=== PATIENT | male | born 1980 | race African-American/Black ===

== ENCOUNTER 2017-09-19 04:05 | Inpatient (IN) | payer OTHER ==
[~2017-09-19] VITALS: Ht 190.5 cm; Wt 109.0 kg
[2017-09-19] MEDS ORDERED: LABETALOL HCL 5 MG/ML ML 20ML VIAL IV ONE ×2 (05:20→06:00)
[2017-09-19] MEDS ORDERED: SODIUM CHLORIDE 0.9% 1,000 ML IV ONE (07:27)
[2017-09-19] MEDS ORDERED: LORazepam 2MG/ML-1ML VIAL IV ONE (07:30)
[2017-09-19] MEDS ORDERED: DILTIAZEM HCL 25 MG/5 ML VIAL IV ONE (07:30)
[2017-09-19 08:19] LABS: Basophils # (auto) 0 uL; Basophils % (auto) 0.8 % (0.0-2.0); Eosinophils # (auto) 0 uL; Eosinophils % (auto) 0.4 % (0.0-7.0); Hematocrit 44.2 % (41.0-53.0); Hemoglobin 14.9 g/dL (13.5-17.5); Lymphocytes # (auto) 1.7 uL; Lymphocytes % (auto) 28.8 % (10.0-50.0); Mean Corpuscular Hemoglobin 31.2 pg (28.0-32.0); Mean Corpuscular Hgb Conc. 33.7 g/dL (32.0-36.0); Mean Corpuscular Volume 92.8 fL (80.0-100.0); Monocytes # (auto) 0.4 uL; Monocytes % (auto) 6.8 % (0.0-12.0); Neutrophils # (auto) 3.7 uL; Neutrophils % (auto) 63.2 % (37.0-80.0); Nucleated Red Blood Cells % 0.1 %; Platelet Count (auto) 318 10^3/uL (140-450); Red Blood Cells 4.77 10^6/uL (4.5-5.90); Red Cell Distribution Width 13.8 % (11.8-14.3); White Blood Cell 5.9 10^3/uL (4.4-10.8)
[2017-09-19 08:28] LABS: Alanine Aminotransferase 21 U/L (16-61); Albumin 3.4 g/dL (3.4-5.0); Alkaline Phosphatase 62 U/L (45-117); Anion Gap 7 (5-15); Aspartate Aminotransferase 10 U/L (15-37); BUN/Creatinine Ratio 15.3; Bilirubin, Total 0.5 mg/dL (0.2-1.0); Blood Urea Nitrogen 11 mg/dL (7-18); Carbon Dioxide 21 mmol/L (21-32); Chloride 109 mmol/L (98-107); GFR African American 157 mL/min; GFR Non-African American 130 mL/min; Glucose 111 mg/dL (74-106); Magnesium 2.5 mg/dL (1.6-2.6); Potassium 3.8 mmol/L (3.5-5.1); Sodium 137 mmol/L (136-145); Total Protein 6.9 g/dL (6.4-8.2)
[2017-09-19 08:43] LABS: Partial Thromboplastin Time 28.5 sec (23.78-33.04); Prothrombin Time 10.7 sec (9.27-12.13)
[2017-09-19 10:55] LABS: Urine Bacteria NONE SEEN /hpf (None Seen); Urine Blood Negative /uL (Negative); Urine Specific Gravity 1.009 (1.001-1.035); Urine WBC 1 /hpf (0 - 3)
[2017-09-19 11:00] LABS: Alcohol, Urine < 3.0 mg/dL (0-5); Amphetamine Screen, Urine POSITIVE (NEGATIVE); Barbiturate Scree,Urine NEGATIVE (NEGATIVE); Benzodiazephine Screen, Urine NEGATIVE (NEGATIVE); Cannabinoid Screen, Urine POSITIVE (NEGATIVE); Cocaine Screen, Urine NEGATIVE (NEGATIVE); Opiate Scree,Urine NEGATIVE (NEGATIVE); Phencyclidine Screen, Urine NEGATIVE (NEGATIVE)
[2017-09-19] MEDS ORDERED: ENOXAPARIN SOD 80 MG/0.8ML SYRINGE SC ONE (11:30)
[2017-09-19] MEDS ORDERED: MORPHINE SULF(PF) 0.5MG/ML 10ML VIAL IV PRN (11:45)
[2017-09-19] MEDS ORDERED: LORazepam 0.5 MG TAB PO PRN (11:45)
[2017-09-19] MEDS ORDERED: LACTULOSE 20Gm/30ML SOLN PO PRN (11:45)
[2017-09-19] MEDS ORDERED: LORazepam 2MG/ML-1ML VIAL IV PRN (11:45)
[2017-09-19] MEDS ORDERED: TEMAZEPAM 15 MG CAP PO PRN (11:45)
[2017-09-19] MEDS ORDERED: PROMETHAZINE HCL 25 MG/ML 1ML IV PRN (11:45)
[2017-09-19] MEDS ORDERED: HYDROcodone-ACET 5/325MG TAB PO PRN (11:45)
[2017-09-19] MEDS ORDERED: LEVETIRACETAM 500 MG TAB PO ONE (11:45)
[2017-09-19] MEDS ORDERED: HYDROmorphone HCL 2 MG/ML VL IV PRN (11:45)
[2017-09-19] MEDS ORDERED: ACETAMINOPHEN 500 MG TAB PO PRN (11:45)
[2017-09-19] MEDS ORDERED: NITROGLYCERIN 0.4 MG SL TAB SL PRN (11:45)
[2017-09-19] MEDS: SODIUM CHLORIDE 0.9% 1,000 ML IV SCH (12:03)
[2017-09-19] MEDS: METOPROLOL TARTRATE 25 MG TAB PO SCH ×2 (12:03→21:30)
[2017-09-19] MEDS: ASPirin 81 mg TAB PO SCH (12:03)
[2017-09-19] MEDS ORDERED: LEVE250T18 PO (16:06)
[2017-09-19 17:29] VITALS: BP 114/85
[2017-09-19] MEDS: LEVETIRACETAM 500 MG TAB PO SCH (21:30)
[2017-09-19] MEDS: ENOXAPARIN SOD 80 MG/0.8ML SYRINGE SC SCH (21:32)
[2017-09-19 21:35] VITALS: BP 121/71
[2017-09-19] MEDS ORDERED: LEVETIRACETAM 500 MG TAB PO SCH (22:00)
[2017-09-20] MEDS ORDERED: METOPROLOL TARTRATE 1MG/1ML-5ML VIAL IV ONE (00:15)
[2017-09-20] MEDS: SODIUM CHLORIDE 0.9% 1,000 ML IV SCH ×2 (01:37→14:20)
[2017-09-20 04:54] VITALS: BP 141/81
[2017-09-20 08:00] VITALS: BP 139/97
[2017-09-20] MEDS: LEVETIRACETAM 500 MG TAB PO SCH (09:18)
[2017-09-20] MEDS: METOPROLOL TARTRATE 25 MG TAB PO SCH (09:19)
[2017-09-20] MEDS: ASPirin 81 mg TAB PO SCH (09:19)
[2017-09-20] MEDS: ENOXAPARIN SOD 80 MG/0.8ML SYRINGE SC SCH (09:19)
[2017-09-20] MEDS ORDERED: PANTOPRAZOLE 40 MG TAB PO SCH (10:00)
[2017-09-20 12:29] VITALS: BP 136/91
[2017-09-20 14:46] VITALS: BP 136/91
== END 2017-09-20 15:12 | disposition home or self-care (01) | DRG 101 ==
LOC: EDBD 04:05 → ER 04:05 → TELE 04:06 → TELE-EAST 15:22
PROVIDERS: ADMIT Internal Medicine; ATTEND Internal Medicine
DX: G40.909 Epilepsy, unspecified, not intractable, without status epilepticus (principal); F15.10 Other stimulant abuse, uncomplicated; F17.210 Nicotine dependence, cigarettes, uncomplicated; I48.0 Paroxysmal atrial fibrillation; F12.10 Cannabis abuse, uncomplicated; E66.9 Obesity, unspecified; Z79.899 Other long term (current) drug therapy; Z79.82 Long term (current) use of aspirin; Z68.30 Body mass index [BMI] 30.0-30.9, adult
CPT/HCPCS: 36415; 70450; 71046; 80053; 80164; 80307; 81001; 82542; 82550; 83735; 84443; 84484; 85025; 85379; 85610; 85652; 85730; 86141; 93005; 93306; 94761; 96361; 96372; 96374; 96375

== ENCOUNTER 2017-12-11 18:15 | Emergency (ER) | payer OTHER ==
[~2017-12-11] VITALS: Ht 190.5 cm; Wt 104.3 kg
[~2017-12-11 18:15] MED LIST: LEVE250T18 PO
[2017-12-11 19:45] LABS: Basophils # (auto) 0 uL; Basophils % (auto) 0.7 % (0.0-2.0); Eosinophils # (auto) 0.1 uL; Eosinophils % (auto) 1.3 % (0.0-7.0); Hematocrit 45.7 % (41.0-53.0); Hemoglobin 15.2 g/dL (13.5-17.5); Lymphocytes # (auto) 1.4 uL; Lymphocytes % (auto) 31.8 % (10.0-50.0); Mean Corpuscular Hemoglobin 31.3 pg (28.0-32.0); Mean Corpuscular Hgb Conc. 33.2 g/dL (32.0-36.0); Mean Corpuscular Volume 94.2 fL (80.0-100.0); Monocytes # (auto) 0.4 uL; Monocytes % (auto) 8.3 % (0.0-12.0); Neutrophils # (auto) 2.6 uL; Neutrophils % (auto) 57.9 % (37.0-80.0); Platelet Count (auto) 303 10^3/uL (140-450); Red Blood Cells 4.85 10^6/uL (4.5-5.90); Red Cell Distribution Width 14.2 % (11.8-14.3); White Blood Cell 4.6 10^3/uL (4.4-10.8)
[2017-12-11 20:17] LABS: Albumin 3.9 g/dL (3.4-5.0); BUN/Creatinine Ratio 13.4; Bilirubin, Total 0.4 mg/dL (0.2-1.0); Calcium 8.4 mg/dL (8.5-10.1); Potassium 3.8 mmol/L (3.5-5.1); Total Protein 8.1 g/dL (6.4-8.2)
[2017-12-11] MEDS ORDERED: LEVETIRACETAM 500 MG TAB PO ONE (21:00)
[2017-12-11 21:40] VITALS: BP 150/68
== END 2017-12-11 21:48 | disposition home or self-care (01) ==
LOC: EDBD 18:15 → ER 18:15
DX: G40.909 Epilepsy, unspecified, not intractable, without status epilepticus (principal); F17.210 Nicotine dependence, cigarettes, uncomplicated; F12.10 Cannabis abuse, uncomplicated; F15.10 Other stimulant abuse, uncomplicated
CPT/HCPCS: 36415; 70450; 80053; 82542; 85025